=== PATIENT | female | born 1960 | race Caucasian/White ===

== ENCOUNTER 2018-02-25 05:05 | Emergency (ER) | payer MEDICARE ==
[~2018-02-25] VITALS: Ht 160 cm; Wt 62.5 kg
[~2018-02-25 05:05] MED LIST: ACET-1757 PO; ALBU8.5H5 INH; CLON0.5T20 PO; CLON1TAB11 PO; DILT60CA PO; ESTR0.6246 PO; FENO145T32 PO; FLUO10CA13 PO; FLUT100D INH; IBUP-1221 PO; LEVO25TA2 PO; LEVO750T26 PO; NICO-487 TD; OMEP20TA62 PO; OXYC1TAB7 PO; OXYC5TAB3 PO; PRED20TA PO; QUET100T PO; QUET200T PO; QUET200T4 PO; THIA100T67 PO; TIOT18CA INH
[2018-02-25] MEDS ORDERED: LORazepam 1MG TABLET ONE (05:29)
[2018-02-25] MEDS ORDERED: LORazepam 1MG TABLET PO ONE (05:30)
[2018-02-25 06:16] VITALS: BP 121/76
== END 2018-02-25 06:42 | disposition home or self-care (01) ==
LOC: ED 05:57
DX: J18.0 Bronchopneumonia, unspecified organism (principal); F41.1 Generalized anxiety disorder; K21.9 Gastro-esophageal reflux disease without esophagitis; J44.9 Chronic obstructive pulmonary disease, unspecified
CPT/HCPCS: 71046; 93005; 99284

== ENCOUNTER 2018-07-10 14:46 | Emergency (ER) | payer MEDICARE ==
[~2018-07-10] VITALS: Ht 165.1 cm; Wt 61.8 kg
[2018-07-10] MEDS ORDERED: SODIUM CHLORIDE FLUSH 10ML SYR IVF ONE (15:30)
[2018-07-10 15:51] LABS: BASOPHILS # (AUTO) 0.04 x10^3/uL (0-0.1); BASOPHILS % (AUTO) 1 % (0-1); EOSINOPHILS # (AUTO) 0.07 x10^3/uL (0-0.4); EOSINOPHILS % (AUTO) 1 % (1-7); LYMPHOCYTES # (AUTO) 2.22 x10^3/uL (1-3.4); LYMPHOCYTES % (AUTO) 32 % (22-44); MD NO; MEAN CORPUSCULAR HEMOGLOBIN 30.9 pg (27.0-34.8); MEAN CORPUSCULAR HGB CONC 32.6 g/dL (32.4-35.8); MEAN CORPUSCULAR VOLUME 94.5 fL (80-100); MEAN PLATELET VOLUME 7.6 fL (7.4-10.4); MONOCYTES # (AUTO) 0.53 x10^3/uL (0.2-0.8); MONOCYTES % (AUTO) 8 % (2-9); NEUTROPHILS # (AUTO) 4.04 x10^3/uL (1.8-6.8); NEUTROPHILS % (AUTO) 59 % (42-75); PLATELET COUNT 282 x10^3/uL (130-400); RED BLOOD COUNT 4.07 x10^6/uL (3.82-5.3); RED CELL DISTRIBUTION WIDTH 13.2 % (9.6-15.2)
[2018-07-10 15:55] LABS: MICROSCOPIC AUTO
[2018-07-10 15:58] LABS: CULTURE INDICATED? YES
[2018-07-10 16:03] LABS: ALANINE AMINOTRANSFERASE 30 U/L (12-78); ALBUMIN 3.7 g/dL (3.4-5.0); ANION GAP 6 mmol/L (5-15); CALCIUM 8.7 mg/dL (8.5-10.1); CHLORIDE 109 mmol/L (98-107)
[2018-07-10 16:07] LABS: AMPHETAMINE SCREEN, URINE Positive (Negative); BARBITURATE SCREEN, URINE Negative (Negative); BENZODIAZEPINE SCREEN, URINE Positive (Negative); CANNABINOID SCREEN, URINE Negative (Negative); COCAINE SCREEN, URINE Negative (Negative); METHADONE SCREEN, URINE Negative (Negative); OPIATE SCREEN, URINE Negative (Negative)
[2018-07-10 16:08] LABS: ALKALINE PHOSPHATASE 121 U/L (45-117); BILIRUBIN,TOTAL 0.3 mg/dL (0.2-1.0); TOTAL PROTEIN 6.9 g/dL (6.4-8.2); TROPONIN I < 0.015 ng/mL (0.000-0.045)
[2018-07-10 16:12] LABS: SALICYLATE LEVEL < 1.7 mg/dL (2.8-20.0)
[2018-07-10 16:13] LABS: ACETAMINOPHEN < 2 mcg/mL (10-30)
--- NOTE | 2018-07-10 16:19 | NUR ---
PTS CHART UP FOR RECHECK
[2018-07-10 19:08] VITALS: BP 115/70
== END 2018-07-10 20:13 | disposition home or self-care (01) ==
LOC: ED 15:05
DX: R41.82 Altered mental status, unspecified (principal); F15.20 Other stimulant dependence, uncomplicated; Z72.9 Problem related to lifestyle, unspecified; F17.200 Nicotine dependence, unspecified, uncomplicated; J44.9 Chronic obstructive pulmonary disease, unspecified
CPT/HCPCS: 36415; 70450; 71045; 80053; 80307; 80329; 81001; 82140; 84484; 85025; 87077; 87086; 87186; 93005; 99284; G0480

== ENCOUNTER 2018-07-24 10:16 | Emergency (ER) | payer MEDICARE ==
[~2018-07-24] VITALS: Ht 165.1 cm; Wt 62.8 kg
[2018-07-24 10:18] VITALS: BP 92/65
--- NOTE | 2018-07-24 11:20 | NUR ---
PT TO ROOM FROM LOBBY AT THIS TIME.
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
--- NOTE | 2018-07-24 12:20 | NUR ---
PT AMBULATED TO BATHROOM UPRIGHT STEADY GAIT. INSTRUCTED ON COLLECTION OF URINE SAMPLE
[2018-07-24 12:26] LABS: BASOPHILS # (AUTO) 0.03 x10^3/uL (0-0.1); BASOPHILS % (AUTO) 0 % (0-1); EOSINOPHILS # (AUTO) 0.05 x10^3/uL (0-0.4); EOSINOPHILS % (AUTO) 1 % (1-7); LYMPHOCYTES % (AUTO) 23 % (22-44); MD NO; MEAN CORPUSCULAR HEMOGLOBIN 32.3 pg (27.0-34.8); MEAN CORPUSCULAR HGB CONC 34.2 g/dL (32.4-35.8); MEAN CORPUSCULAR VOLUME 94.4 fL (80-100); MEAN PLATELET VOLUME 7.3 fL (7.4-10.4); MONOCYTES # (AUTO) 0.47 x10^3/uL (0.2-0.8); MONOCYTES % (AUTO) 6 % (2-9); NEUTROPHILS # (AUTO) 5.42 x10^3/uL (1.8-6.8); NEUTROPHILS % (AUTO) 70 % (42-75); PLATELET COUNT 359 x10^3/uL (130-400); RED BLOOD COUNT 4.08 x10^6/uL (3.82-5.3); RED CELL DISTRIBUTION WIDTH 13.6 % (9.6-15.2)
[2018-07-24 12:31] LABS: ALBUMIN 3.6 g/dL (3.4-5.0); ANION GAP 6 mmol/L (5-15); CALCIUM 8.8 mg/dL (8.5-10.1); CHLORIDE 110 mmol/L (98-107)
--- NOTE | 2018-07-24 12:31 | NUR ---
SW CALLED TO ASSESS PATIENT CIRCUMSTANCES
[2018-07-24 12:33] LABS: SALICYLATE LEVEL < 1.7 mg/dL (2.8-20.0)
[2018-07-24 12:34] LABS: ALANINE AMINOTRANSFERASE 24 U/L (12-78); ALKALINE PHOSPHATASE 153 U/L (45-117); BILIRUBIN,TOTAL 0.7 mg/dL (0.2-1.0); CREATININE 0.84 mg/dL (0.55-1.02); TOTAL PROTEIN 7.2 g/dL (6.4-8.2)
[2018-07-24 12:36] LABS: ACETAMINOPHEN < 2 mcg/mL (10-30)
[2018-07-24 12:54] LABS: AMPHETAMINE SCREEN, URINE Positive (Negative); BARBITURATE SCREEN, URINE Negative (Negative); BENZODIAZEPINE SCREEN, URINE Negative (Negative); CANNABINOID SCREEN, URINE Negative (Negative); COCAINE SCREEN, URINE Negative (Negative); METHADONE SCREEN, URINE Negative (Negative); OPIATE SCREEN, URINE Negative (Negative)
--- NOTE | 2018-07-24 14:29 | NUR ---
RN TO THE BEDSIDE TO DISCHARGE THE PT. RN IS ATTEMPTING TO GIVE THE PT. DISCHARGE INSTRUCTIONS. PT. STARTED SCREAMING "YOU'RE A COLD HEARTED BITCH." PT. HAS BEEN SEEN BY VEENA WELL SONIA. PT. STATES SHE WANTS ANTI-ANXIETY MEDS, RN ATTEMPTED TO EXPLAIN TO THE PT. THAT SHE IS UP FOR DISCHARGE. PT. IS SCREAMING AT THE RN AND CONTINUING TO BELITTLE AND BERATE WITH PROFANITIES. PT. REFUSED VITALS AND IS THROWING MEDICAL EQUIPTMENT. SECURITY WAS CALLED TO ESCORT THE PT. OUT OF THE EMERGENCY DEPARTMENT.
== END 2018-07-24 14:38 | disposition home or self-care (01) ==
LOC: ED 12:06
DX: F15.150 Other stimulant abuse with stimulant-induced psychotic disorder with delusions (principal); F17.200 Nicotine dependence, unspecified, uncomplicated; J44.9 Chronic obstructive pulmonary disease, unspecified; K21.9 Gastro-esophageal reflux disease without esophagitis; F41.1 Generalized anxiety disorder; Z90.710 Acquired absence of both cervix and uterus
CPT/HCPCS: 36415; 80053; 80307; 80329; 85025; 99284; G0480

== ENCOUNTER 2018-08-06 15:30 | Emergency (ER) | payer MEDICARE ==
[~2018-08-06] VITALS: Ht 165.1 cm; Wt 60.6 kg
[2018-08-06 15:34] VITALS: BP 120/78
--- NOTE | 2018-08-06 15:45 | NUR ---
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 ALL DRUG PARAPHENALIA DISPOSED OF IN SHARPS CONTAINER, PRESCRIPTION BOTTLES IN CARE OF PRIMARY RN
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
[2018-08-06 17:41] LABS: ANION GAP 6 mmol/L (5-15); CHLORIDE 112 mmol/L (98-107)
[2018-08-06 17:42] LABS: ALANINE AMINOTRANSFERASE 32 U/L (12-78); ALBUMIN 3.8 g/dL (3.4-5.0); SALICYLATE LEVEL < 1.7 mg/dL (2.8-20.0)
[2018-08-06 17:43] LABS: ACETAMINOPHEN < 2 mcg/mL (10-30)
[2018-08-06 17:47] LABS: ALKALINE PHOSPHATASE 132 U/L (45-117); BILIRUBIN,TOTAL 0.2 mg/dL (0.2-1.0); TOTAL PROTEIN 7.1 g/dL (6.4-8.2)
[2018-08-06 18:06] LABS: CULTURE INDICATED? YES; MICROSCOPIC INDICATED
[2018-08-06 18:07] LABS: MD YES; MEAN CORPUSCULAR HEMOGLOBIN 31.2 pg (27.0-34.8); MEAN CORPUSCULAR HGB CONC 33.1 g/dL (32.4-35.8); MEAN CORPUSCULAR VOLUME 94.3 fL (80-100); MEAN PLATELET VOLUME 8.3 fL (7.4-10.4); PLATELET COUNT 299 x10^3/uL (130-400); RED BLOOD COUNT 4.14 x10^6/uL (3.82-5.3); RED CELL DISTRIBUTION WIDTH 13.8 % (9.6-15.2)
[2018-08-06 18:12] LABS: BASOS#(MANUAL) 0.09 x10^3/uL (0-0.1); BASOS% (MANUAL) 1 % (0-1); EOS#(MANUAL) 0.17 x10^3/uL (0.0-0.4); EOS% (MANUAL) 2 % (1-7); LYMPH#(MANUAL) 2.75 x10^3/uL (1-3.4); LYMPHS% (MANUAL) 32 % (22-44); MONOS#(MANUAL) 0.43 x10^3/uL (0.3-2.7); MONOS% (MANUAL) 5 % (2-9); REACTIVE LYMPHS # (MANUAL) 0.09 x10^3/uL (0-0); REACTIVE LYMPHS % (MANUAL) 1 % (0-0); SEG#(MANUAL) 5.07 x10^3/uL (1.8-6.8); SEGS% (MANUAL) 59 % (42-75)
[2018-08-06 18:13] LABS: <PLATELET ESTIMATE> ADEQUATE; <PLT MORPHOLOGY> NORMAL PLT MORPH; <RBC MORPHOLOGY> NORMAL
[2018-08-06 18:13] LABS: AMPHETAMINE SCREEN, URINE Positive (Negative); BARBITURATE SCREEN, URINE Negative (Negative); BENZODIAZEPINE SCREEN, URINE Positive (Negative); CANNABINOID SCREEN, URINE Negative (Negative); COCAINE SCREEN, URINE Negative (Negative); METHADONE SCREEN, URINE Negative (Negative); OPIATE SCREEN, URINE Positive (Negative)
[2018-08-06] MEDS ORDERED: NITROFURANTOIN (MACROBID) 100 MG CAPSULE PO ONE (19:00)
[2018-08-06] MEDS ORDERED: POTASSIUM CHLORIDE 20 MEQ TAB.ER.PRT PO ONE (19:00)
[2018-08-06] MEDS ORDERED: POTASSIUM CHLORIDE 20 MEQ TAB.ER.PRT ONE (19:57)
[2018-08-06] MEDS ORDERED: NITROFURANTOIN (MACROBID) 100 MG CAPSULE ONE (19:57)
== END 2018-08-06 20:12 | disposition home or self-care (01) ==
LOC: ED 16:08
DX: F22 Delusional disorders (principal); F11.20 Opioid dependence, uncomplicated; F15.221 Other stimulant dependence with intoxication delirium; F41.1 Generalized anxiety disorder; J44.9 Chronic obstructive pulmonary disease, unspecified; K21.9 Gastro-esophageal reflux disease without esophagitis; Z90.710 Acquired absence of both cervix and uterus
CPT/HCPCS: 36415; 70450; 80053; 80307; 80329; 81001; 85025; 87077; 87086; 87186; 99284; G0480

== ENCOUNTER 2018-09-02 04:55 | Emergency (ER) | payer MEDICARE ==
[~2018-09-02] VITALS: Ht 165.1 cm; Wt 63.0 kg
[2018-09-02 04:57] VITALS: BP 134/89
== END 2018-09-02 05:47 | disposition home or self-care (01) ==
LOC: ED 05:18
DX: M79.671 Pain in right foot (principal); M79.672 Pain in left foot; F17.200 Nicotine dependence, unspecified, uncomplicated
CPT/HCPCS: 99281

== ENCOUNTER 2019-02-20 17:09 | Emergency (ER) | payer MEDICARE ==
[~2019-02-20] VITALS: Ht 167.6 cm; Wt 54.5 kg
[~2019-02-20 17:09] MED LIST changes: -ACET-1757 PO; +ACET-2065 PO
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
[2019-02-20] MEDS ORDERED: LORazepam 1MG TABLET PO ONE (17:30)
[2019-02-20] MEDS ORDERED: ALBUTEROL/IPRATROPIUM 2.5MG/0.5MG, 3 ML NPPB ONE (17:30)
[2019-02-20 17:47] LABS: BASOPHILS # (AUTO) 0.03 x10^3/uL (0-0.1); BASOPHILS % (AUTO) 1 % (0-1); EOSINOPHILS # (AUTO) 0.03 x10^3/uL (0-0.4); EOSINOPHILS % (AUTO) 1 % (1-7); LYMPHOCYTES % (AUTO) 18 % (22-44); MD NO; MEAN CORPUSCULAR HEMOGLOBIN 33.1 pg (27.0-34.8); MEAN CORPUSCULAR HGB CONC 33.9 g/dL (32.4-35.8); MEAN CORPUSCULAR VOLUME 97.8 fL (80-100); MEAN PLATELET VOLUME 7.7 fL (7.4-10.4); MONOCYTES # (AUTO) 0.52 x10^3/uL (0.2-0.8); MONOCYTES % (AUTO) 8 % (2-9); NEUTROPHILS # (AUTO) 4.62 x10^3/uL (1.8-6.8); NEUTROPHILS % (AUTO) 73 % (42-75); PLATELET COUNT 247 x10^3/uL (130-400); RED BLOOD COUNT 4.46 x10^6/uL (3.82-5.3); RED CELL DISTRIBUTION WIDTH 13.5 % (9.6-15.2)
[2019-02-20] MEDS ORDERED: LORazepam 1MG TABLET ONE (17:50)
[2019-02-20 17:57] LABS: ALBUMIN 3.5 g/dL (3.4-5.0); ANION GAP 6 mmol/L (5-15); CHLORIDE 107 mmol/L (98-107)
[2019-02-20] MEDS ORDERED: ALBUTEROL/IPRATROPIUM 2.5MG/0.5MG, 3 ML ONE (18:08)
--- NOTE | 2019-02-20 18:19 | NUR ---
PT RESTING IN [facility], STATES SHE FEELS "A LITTLE BETTER" AFTER MEDICATIONS. AWAITING RECHECK. PT ON MONITOR AND CALL LIGHT WITHIN REACH
[2019-02-20 18:20] VITALS: BP 108/72
== END 2019-02-20 18:47 | disposition home or self-care (01) ==
LOC: ED 17:28
DX: J44.1 Chronic obstructive pulmonary disease with (acute) exacerbation (principal); F41.9 Anxiety disorder, unspecified; R00.0 Tachycardia, unspecified; Z91.14 Patient's other noncompliance with medication regimen; F17.200 Nicotine dependence, unspecified, uncomplicated; Z72.9 Problem related to lifestyle, unspecified; Z90.710 Acquired absence of both cervix and uterus
CPT/HCPCS: 36415; 71046; 80048; 82040; 85025; 93005; 94640; 99284; J7512; J7620

== ENCOUNTER 2019-08-23 05:36 | Emergency (ER) | payer MEDICAID, MEDICARE ==
[~2019-08-23] VITALS: Ht 165.1 cm; Wt 59.1 kg
--- NOTE | 2019-08-23 05:56 | NUR ---
PT AMBULATES FROM TRIAGE TO ROOM WITH STEADY GAIT.
[2019-08-23] MEDS ORDERED: ACETAMINOPHEN 500 MG TABLET ONE (06:14)
--- NOTE | 2019-08-23 06:16 | NUR ---
PT AMBULATES TO XRAY WITH STEADY GAIT AT THIS TIME.
[2019-08-23] MEDS ORDERED: ACETAMINOPHEN 500 MG TABLET PO ONE (06:30)
[2019-08-23 06:58] VITALS: BP 122/78
== END 2019-08-23 07:08 | disposition home or self-care (01) ==
LOC: ED 06:48
DX: G89.29 Other chronic pain (principal); M13.811 Other specified arthritis, right shoulder; F17.200 Nicotine dependence, unspecified, uncomplicated; K21.9 Gastro-esophageal reflux disease without esophagitis; J45.909 Unspecified asthma, uncomplicated
CPT/HCPCS: 99283

== ENCOUNTER 2019-08-29 08:34 | Emergency (ER) | payer MEDICARE, MEDICAID ==
[~2019-08-29] VITALS: Ht 165.1 cm; Wt 56.7 kg
[2019-08-29 08:41] VITALS: BP 108/79
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
== END 2019-08-29 09:51 | disposition left against medical advice (07) ==
LOC: ED 08:50
DX: F41.1 Generalized anxiety disorder (principal); R06.00 Dyspnea, unspecified; R51 Headache; J02.9 Acute pharyngitis, unspecified; J45.909 Unspecified asthma, uncomplicated; K21.9 Gastro-esophageal reflux disease without esophagitis; F17.200 Nicotine dependence, unspecified, uncomplicated; Z90.710 Acquired absence of both cervix and uterus
CPT/HCPCS: 93005; 99283

== ENCOUNTER 2019-09-03 05:20 | Emergency (ER) | payer MEDICAID, MEDICARE ==
[~2019-09-03] VITALS: Ht 165.1 cm; Wt 55.9 kg
[2019-09-03 05:24] VITALS: BP 131/76
--- NOTE | 2019-09-03 05:33 | NUR ---
PT SITTING ON GURNEY, CALL LIGHT WITHIN REACH. AWAITING ERP EVAL AND ORDERS
[2019-09-03] MEDS ORDERED: KETOROLAC 30 MG/1 ML ONE (05:38)
--- NOTE | 2019-09-03 05:42 | NUR ---
PT MEDICATED PER MAR
[2019-09-03] MEDS ORDERED: KETOROLAC 30 MG/1 ML IM ONE (06:00)
--- NOTE | 2019-09-03 06:14 | NUR ---
PT NOT IN ROOM, LEFT WITHOUT D/C PAPERS, PA UPDATED
== END 2019-09-03 06:17 | disposition home or self-care (01) ==
LOC: ED 05:41
DX: M77.9 Enthesopathy, unspecified (principal); F17.210 Nicotine dependence, cigarettes, uncomplicated; J45.909 Unspecified asthma, uncomplicated
CPT/HCPCS: 96372; 99283; J1885

== ENCOUNTER 2020-06-09 14:34 | Emergency (ER) | payer MEDICARE, MEDICAID ==
[~2020-06-09] VITALS: Ht 162.6 cm; Wt 68.4 kg
[~2020-06-09 14:34] MED LIST changes: -NICO-487 TD; +NICO-587 TD; -OXYC5TAB3 PO; +OXYC5TAB98 PO
--- NOTE | 2020-06-09 16:23 | NUR ---
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
[2020-06-09] MEDS ORDERED: LORazepam 1MG TABLET ONE (16:44)
[2020-06-09] MEDS ORDERED: LORazepam 1MG TABLET PO ONE (17:00)
[2020-06-09 18:01] VITALS: BP 126/85
== END 2020-06-09 18:03 | disposition home or self-care (01) ==
LOC: ED 16:54
DX: F41.1 Generalized anxiety disorder (principal); R00.0 Tachycardia, unspecified; J45.909 Unspecified asthma, uncomplicated; F17.200 Nicotine dependence, unspecified, uncomplicated; Z90.710 Acquired absence of both cervix and uterus
CPT/HCPCS: 93005; 99283